=== PATIENT | female | born 1990 | race Two or more races ===

== ENCOUNTER 2020-07-17 17:27 | Emergency (ER) | payer BC ==
[~2020-07-17] VITALS: Ht 167.6 cm; Wt 95.3 kg
[2020-07-17 18:47] LABS: Basophils # (auto) 0 10 ^3/uL (0-0.2); Basophils % (auto) 0.4 % (0.0-2.0); Eosinophils # (auto) 0.1 10 ^3/uL (0-0.8); Eosinophils % (auto) 1.1 % (0.0-7.0); Hematocrit 39.9 % (36.0-46.0); Hemoglobin 13.8 g/dL (12.2-16.2); Lymphocytes # (auto) 2.2 10 ^3/uL (0.4-5.4); Lymphocytes % (auto) 21.4 % (10.0-50.0); Mean Corpuscular Hemoglobin 28.1 pg (28.0-32.0); Mean Corpuscular Hgb Conc. 34.7 g/dL (32.0-36.0); Mean Corpuscular Volume 81.2 fL (80.0-100.0); Monocytes # (auto) 0.7 10 ^3/uL (0-1.3); Neutrophils # (auto) 7.4 10 ^3/uL (1.6-8.6); Neutrophils % (auto) 70.1 % (37.0-80.0); Nucleated Red Blood Cells % 0.1 %; Platelet Count (auto) 221 10^3/uL (140-450); Red Blood Cells 4.92 10^6/uL (4.0-5.20); Red Cell Distribution Width 16.4 % (11.8-14.3); White Blood Cell 10.5 10^3/uL (4.4-10.8)
[2020-07-17 21:30] VITALS: BP 159/93
== END 2020-07-17 20:51 | disposition home or self-care (01) ==
LOC: ER 17:27
DX: O20.0 Threatened abortion (principal)
CPT/HCPCS: 36415; 76801; 76817; 84702; 85025

== ENCOUNTER → 2020-07-23 | Outpatient (CLI) | payer BC | END | disposition home or self-care (01) | LOC: EEVIPCON 12:24 → LAB 12:24 | PROVIDERS: ATTEND Obstetrics & Gynecology | DX: O20.0 Threatened abortion (principal) | CPT/HCPCS: 36415; 84702 ==

== ENCOUNTER → 2020-07-25 | Outpatient (CLI) | payer BC | END | disposition home or self-care (01) | LOC: LAB 08:46 | PROVIDERS: ATTEND Obstetrics & Gynecology | DX: Z34.80 Encounter for supervision of other normal pregnancy, unspecified trimester (principal); Z3A.00 Weeks of gestation of pregnancy not specified | CPT/HCPCS: 36415; 81025; 84702 ==

== ENCOUNTER → 2020-08-01 | Outpatient (CLI) | payer BC | END | disposition home or self-care (01) | LOC: LAB 12:54 | PROVIDERS: ATTEND Obstetrics & Gynecology | DX: Z34.80 Encounter for supervision of other normal pregnancy, unspecified trimester (principal); Z3A.00 Weeks of gestation of pregnancy not specified | CPT/HCPCS: 36415; 84702 ==

== ENCOUNTER → 2021-05-03 | Outpatient (CLI) | payer BC ==
[2021-05-03 08:16] LABS: Basophils # (auto) 0 10 ^3/uL (0-0.2); Basophils % (auto) 0.3 % (0.0-2.0); Eosinophils # (auto) 0.1 10 ^3/uL (0-0.8); Eosinophils % (auto) 1.2 % (0.0-7.0); Hematocrit 42.6 % (36.0-46.0); Hemoglobin 14.3 g/dL (12.2-16.2); Lymphocytes # (auto) 1.8 10 ^3/uL (0.4-5.4); Lymphocytes % (auto) 24.6 % (10.0-50.0); Mean Corpuscular Hemoglobin 28.6 pg (28.0-32.0); Mean Corpuscular Hgb Conc. 33.6 g/dL (32.0-36.0); Monocytes # (auto) 0.4 10 ^3/uL (0-1.3); Monocytes % (auto) 5.5 % (0.0-12.0); Neutrophils % (auto) 68.4 % (37.0-80.0); Red Blood Cells 5.01 10^6/uL (4.0-5.20); Red Cell Distribution Width 13.6 % (11.8-14.3); White Blood Cell 7.3 10^3/uL (4.4-10.8)
[2021-05-03 08:25] LABS: Calcium 9.3 mg/dL (8.5-10.1); Potassium 3.7 mmol/L (3.5-5.1)
[2021-05-03 08:31] LABS: BUN/Creatinine Ratio 17.3; Bilirubin, Total 0.5 mg/dL (0.2-1.0); Total Protein 7.9 g/dL (6.4-8.2)
== END | disposition home or self-care (01) ==
LOC: LAB 07:41
PROVIDERS: ATTEND Obstetrics & Gynecology
DX: R73.9 Hyperglycemia, unspecified (principal); I10 Essential (primary) hypertension; M25.50 Pain in unspecified joint
CPT/HCPCS: 36415; 80053; 80061; 83036; 84439; 84443; 85025; 86038; 86431

== ENCOUNTER 2024-03-25 07:17 | Observation (INO) | payer BC ==
[~2024-03-25] VITALS: Ht 167.6 cm; Wt 98.9 kg
--- NOTE | 2024-03-25 08:24 | DVH ---
CLINICAL HISTORY: vaginal bleeding/ chronic hypertension. COMPARISON: None TECHNIQUE: biophysical profile was performed. Transabdominal sonographic images of the fetus we re obtained. Transvaginal evaluation was performed to evaluate the cervix. FINDINGS: The fetus is in cephalic position. heart rate measures 135 BPM. Amniotic fluid index measures 12.4 cm. The placenta is anterior in position. No evidence of placenta previa or abruption. Cervix is closed and measures up to 5.2 cm in length. Structures in the cervix, likely nabothian cyst s BPP profile is an overall score of 8/8, with 2/2 points for breathing, with at least one episode of breathing over a 30 second duration during a 30 minute observation, 2/2 points for m ovements, with 3 or more discrete body or limb movements, 2/2 points for tone, with one or more episodes of extremity extension with return to flexion, or opening and closing of hand, and 2/ 2 points for amniotic fluid, with at least 1 pocket of amniotic fluid that measures 2 cm in 2 perpend icular planes. IMPRESSION: 1. BPP score of 8/8. 2. No evidence of placenta previa or abruption. Cervix is closed and measures up to 5.2 cm in length. Nabothian cysts in the cervix.
[2024-03-25 08:27] LABS: Basophils # (auto) 0 10 ^3/uL (0-0.2); Eosinophils # (auto) 0.1 10 ^3/uL (0-0.8); Mean Corpuscular Hgb Conc. 32.8 g/dL (32.0-36.0); Monocytes # (auto) 0.6 10 ^3/uL (0-1.3)
[2024-03-25 08:28] LABS: Basophils % (auto) 0.2 % (0.0-2.0); Hemoglobin 10.5 g/dL (12.2-16.2); Lymphocytes # (auto) 1.5 10 ^3/uL (0.4-5.4); Lymphocytes % (auto) 14.1 % (10.0-50.0); Mean Corpuscular Hemoglobin 25.9 pg (28.0-32.0); Mean Corpuscular Volume 78.9 fL (80.0-100.0); Monocytes % (auto) 5.5 % (0.0-12.0); Neutrophils # (auto) 8.6 10 ^3/uL (1.6-8.6); Neutrophils % (auto) 79.2 % (37.0-80.0); Nucleated Red Blood Cells % 0.1 %; Platelet Count (auto) 335 10^3/uL (140-450); Red Blood Cells 4.05 10^6/uL (4.0-5.20); Red Cell Distribution Width 15.8 % (11.8-14.3); White Blood Cell 10.9 10^3/uL (4.4-10.8)
[2024-03-25 08:43] LABS: Urine Bacteria FEW /hpf (None Seen); Urine Blood 2+ /uL (Negative); Urine Clarity Clear (Clear); Urine Color Light-Yellow (Yellow); Urine Protein, UAD Negative (Negative); Urine Specific Gravity 1.009 (1.001-1.035); Urine Squamous Epithelial Cell FEW /hpf (<5); Urine Urobilinogen Normal (Negative); Urine WBC 3 /HPF (0-5)
[2024-03-25 08:45] LABS: INR 0.94 (0.9-1.15); Partial Thromboplastin Time 24.8 SEC (24.5-34.5)
[2024-03-25 08:45] LABS: Protein, Urine 6.3 mg/dL (1-14)
[2024-03-25 08:47] LABS: Creatinine, Urine 71.98 mg/dL (30.0-125.0); Urine Protein/Creatinine Ratio 0.09
[2024-03-25] MEDS: LABETALOL HCL 200 MG TAB PO ONE (08:47)
[2024-03-25] MEDS: NIFEdipine 10 MG CAP PO ONE ×2 (08:48→09:20)
[2024-03-25 08:50] LABS: Alanine Aminotransferase 10 U/L (7-40); Albumin 4.1 g/dL (3.2-4.8); Anion Gap 8 (5-15); BUN/Creatinine Ratio 14.8 (10.0-20.0); Calcium 9.2 mg/dL (8.7-10.4); Carbon Dioxide 23 mmol/L (20-31); Chloride 106 mmol/L (98-107); Glucose 93 mg/dL (74-106); Potassium 3.8 mmol/L (3.5-5.1); Sodium 137 mmol/L (136-145)
[2024-03-25 08:51] LABS: Bilirubin, Total 0.4 mg/dL (0.2-1.0); Total Protein 6.3 g/dL (5.7-8.2)
[2024-03-25 08:52] LABS: Alkaline Phosphatase 117 U/L (46-116); Aspartate Aminotransferase 10 U/L (13-40); Blood Urea Nitrogen 8 mg/dL (9-23)
[2024-03-25] MEDS ORDERED: LABE200T33 PO (10:56)
[2024-03-25] MEDS ORDERED: ASPI-543 PO (10:56)
[2024-03-25] MEDS ORDERED: NIFE90TA75 PO (10:57)
--- NOTE | 2024-03-25 12:03 | DVHDS2 ---
Physician Discharge Progress N Final Diagnosis: IUP 33 wk, Threatened labor Vaginal bleeding third trim (spotting) Secondary Diagnosis: AMA, CHTN Operations or Procedures: Operations or Procedures NST/BPP JOE OB ultrasound limited Acute tocolysis Commentary: Commentary Cervix closed, cervical length > 5cm NO acute bleeding status reassuring. PIH labs normal Condition on Discharge: Stable Disposition: Home Discharge Instructions: Diet: Regular Activity: Light activity Activity comment: Pelvic rest x 2 wk Follow Up/Referral: [address] Ndiaye Medications: Procardia 20mg PO q4h Follow Up Care: Discharge Statement: "Patient was advised to return to the ER or call 911 if any headaches, dizziness, shortness of breath, chest pain, abdominal pain, bleeding, fevers, or worsening of medical condition. Patient was counseled about treatment plan, medications, possible side effects, patientverbalized understanding. All questions were answered to the best of my ability. This discharge took greater then 30 minutes in planning, reviewing doc umentation, counseling the patient, and discussing with other team members." Visit Coding OBGYN Date of Service: Mar 25, 2024 Billing Provider: ANASTASIYA NDIAYE DO HUMAN RESOURCES TEAM MEMBER Common Visit Codes: 60155-IUV/OBS SAME DATE (HIGH) HUMAN RESOURCES TEAM MEMBER Procedure Codes: 04148-34- NON-STRESS TEST ANASTASIYA NDIAYE DO Mar 25, 2024 12:03
[2024-03-25] MEDS ORDERED: NIFE10CA52 PO (12:16)
[2024-03-25] MEDS ORDERED: NIFEdipine 10 MG CAP PO ONE (12:20)
== END 2024-03-25 12:51 | disposition home or self-care (01) ==
LOC: LDRP 07:17
PROVIDERS: ADMIT Obstetrics & Gynecology; ATTEND Obstetrics & Gynecology
DX: O47.03 False labor before 37 completed weeks of gestation, third trimester (principal); O26.853 Spotting complicating pregnancy, third trimester; O16.3 Unspecified maternal hypertension, third trimester; O09.513 Supervision of elderly primigravida, third trimester; Z3A.33 33 weeks gestation of pregnancy
CPT/HCPCS: 36415; 59025; 76817; 76818; 80053; 81001; 82570; 84156; 85025; 85610; 85730; 86850; 86900; 86901; 94760; G0378

== ENCOUNTER 2024-03-27 11:14 | Observation (INO) | payer BC ==
[~2024-03-27 11:14] MED LIST: ASPI-543 PO; LABE200T33 PO; NIFE10CA52 PO
--- NOTE | 2024-03-27 12:00 | DVH ---
CLINICAL HISTORY: Chronic hypertension. COMPARISON: US BIOPHYSICAL PROFILE on DOS: 03/25/24 TECHNIQUE: biophysical profile was performed. Transabdominal sonographic images of the fetus we re obtained. FINDINGS: The fetus is in cephalic position. heart rate measures 153 BPM. Amniotic fluid index measures 13 cm. The placenta is anterior in position. Dense of placenta previa or abruption. BPP profile is an overall score of 8/8, with 2/2 points for breathing, with at least one episode of breathing over a 30 second duration during a 30 minute observation, 2/2 points for m ovements, with 3 or more discrete body or limb movements, 2/2 points for tone, with one or more episodes of extremity extension with return to flexion, or opening and closing of hand, and 2/ 2 points for amniotic fluid, with at least 1 pocket of amniotic fluid that measures 2 cm in 2 perpend icular planes. IMPRESSION: BPP score of 8/8.
[2024-03-27 12:07] LABS: Urine Bacteria FEW /hpf (None Seen); Urine Blood Negative /uL (Negative); Urine Clarity Clear (Clear); Urine Color Light-Yellow (Yellow); Urine Mucus FEW (None Seen); Urine Protein, UAD Negative (Negative); Urine Squamous Epithelial Cell FEW /hpf (<5); Urine Urobilinogen Normal (Negative); Urine WBC 2 /HPF (0-5); Urine pH 6.5 (5.0-9.0)
[2024-03-27 12:16] LABS: Protein, Urine 6.6 mg/dL (1-14)
[2024-03-27 12:19] LABS: Creatinine, Urine 78.12 mg/dL (30.0-125.0); Urine Protein/Creatinine Ratio 0.08
[2024-03-27 12:47] LABS: Protein, Urine 7.8 mg/dL (1-14)
--- NOTE | 2024-03-29 09:29 | DVHDS2 ---
Physician Discharge Progress N Final Diagnosis: CHTN Operations or Procedures: Operations or Procedures nst,sono Condition on Discharge: Good Disposition: Home Discharge Instructions: Diet: Cardiac 2g Na,low cholest Activity: No Restrictions, As Tolerated Medications: na Follow Up Care: Specialist: 3d Discharge Statement: "Patient was advised to return to the ER or call 911 if any headaches, dizziness, shortness of breath, chest pain, abdominal pain, bleeding, fevers, or worsening of medical condition. Patient was counseled about treatment plan, medications, possible side effects, patientverbalized understanding. All questions were answered to the best of my ability. This discharge took greater then 30 minutes in planning, reviewing documentation, counseling the patient, and discussing with other team members." Visit Coding OBGYN Date of Service: Mar 29, 2024 Billing Provider: CHRIS GUSTAFOSN DO VICE PRESIDENT SALES Common Visit Codes: 82868-OPU/OBS DISCH DAY >30MIN VICE PRESIDENT SALES Procedure Codes: 78808-61- NON-STRESS TEST CHRIS GUSTAFSON DO Mar 29, 2024 09:29
== END 2024-03-27 12:53 | disposition home or self-care (01) ==
LOC: LDRP 11:14
PROVIDERS: ADMIT Obstetrics & Gynecology; ATTEND Obstetrics & Gynecology
DX: O16.3 Unspecified maternal hypertension, third trimester (principal); O26.853 Spotting complicating pregnancy, third trimester; Z3A.33 33 weeks gestation of pregnancy; Z79.899 Other long term (current) drug therapy; Z98.890 Other specified postprocedural states
CPT/HCPCS: 59025; 76818; 81001; 81002; 82570; 84156; 94760; G0378

== ENCOUNTER 2024-03-30 14:08 | Observation (INO) | payer BC ==
[~2024-03-30] VITALS: Ht 167.6 cm; Wt 99.3 kg
--- NOTE | 2024-03-30 17:39 | DVH ---
BIOPHYSICAL PROFILE HISTORY: Chronic hypertension TECHNIQUE: Multiple transabdominal real-time grayscale sonographic images through the gravid uterus of the fetus with duplex Doppler color flow and M-mode spectral analysis FINDINGS: BIOPHYSICAL PROFILE: breathing score: 2 movement score: 2 tone score: 2 Quantitative JOE score: 2 (JOE: 13.3 Cm.) Total score: 8 The cervix is not well-visualized Single live fetus in cephalic presentation. heart rate 145 beats per minute. Grade 2 anterior placenta without previa or abruption Single nuchal cord is not visualized. IMPRESSION: Biophysical profile score: 8 Single nuchal Cord is visualized.
--- NOTE | 2024-03-30 18:08 | DVHDS2 ---
Physician Discharge Progress N Final Diagnosis: testing for CHTN Operations or Procedures: Operations or Procedures 33yo IUP@33.4wks, Denies UCs/LOF/VB/ALDANA/vision changes/RUQ pain. Endorses +FM. VSS NST reactive FKC/PTL/PreE precautions reviewed Dr. Echavarria consulted, agrees with POC. Other Interventions Other Interventions [address] [address] Ph: [phone] DIAGNOSTIC IMAGING Diagnostic Imaging Report : [id number] Signed PATIENT: ARIAN PANDA ACCT: [id number] UNIT: [id number] : 1990 LOC: [facility] ROOM / BED: TRIAGE2 / A AGE / SEX: 33 / F ADM STATUS: ADM IN SERVICE 34 ORDERING PHYSICIAN: ROMELIA RASCON CNM PROCEDURE(s): BPP - BIOPHYSICAL PROFILE REASON: Chronic hypertension ORDER NUMBER(s): [id number], ACCESSION NUMBER(s): [id number] BIOPHYSICAL PROFILE HISTORY: Chronic hypertension TECHNIQUE: Multiple transabdominal real-time grayscale sonographic images through the gravid uterus of the fetus with duplex Doppler color flow and M-mode spectral analysis FINDINGS: BIOPHYSICAL PROFILE: breathing score: 2 movement score: 2 tone score: 2 Quantitative JOE score: 2 (JOE: 13.3 Cm.) Total score: 8 The cervix is not well-visualized Single live fetus in cephalic presentation. heart rate 145 beats per minute. Grade 2 anterior placenta without previa or abruption Single nuchal cord is not visualized. IMPRESSION: Biophysical profile score: 8 Single nuchal Cord is visualized. ATED BY: TERESITA ALVARADO DO DICTATED DATE/TIME: 03/30/241736 SIGNED BY: TERESITA ALVARADO DO SIGNED DATE/TIME: 03/30/241736 CC: Condition on Discharge: Stable Disposition: Home Discharge Instructions: Diet: Regular Activity: Light activity Medications: see med list Follow Up Care: Specialist: f/u twice weekly Discharge Statement: "Patient was advised to return to the ER or call 911 if any headaches, dizziness, shortness of breath, chest pain, abdominal pain, bleeding, fevers, or worsening of medical condition. Patient was counseled about treatment plan, medications, possible side effects, patientverbalized understanding. All questions were answered to the best of my ability. This discharge took greater then 30 minutes in planning, reviewing documentation, counseling the patient, and discussing with other team members." Visit Coding OBGYN Date of Service: Mar 30, 2024 Billing Provider: ROMELIA RASCON CNM SCHEDULE ANNOUNCER Common Visit Codes: 11467-RPEQLCV OBS CARE (HIGH) SCHEDULE ANNOUNCER Procedure Codes: 54228-42- NON-STRESS TEST ROMELIA RASCON CNM Mar 30, 2024 18:08
== END 2024-03-30 17:55 | disposition home or self-care (01) ==
LOC: LDRP 16:32
PROVIDERS: ADMIT Obstetrics & Gynecology; ATTEND Obstetrics & Gynecology
DX: O13.3 Gestational [pregnancy-induced] hypertension without significant proteinuria, third trimester (principal); Z3A.33 33 weeks gestation of pregnancy; Z79.899 Other long term (current) drug therapy
CPT/HCPCS: 59025; 76818; 81002; 94760; G0378

== ENCOUNTER 2024-04-03 11:15 | Observation (INO) | payer BC ==
--- NOTE | 2024-04-03 12:03 | DVH ---
BIOPHYSICAL PROFILE HISTORY: TN Comparison Study: Biophysical profile 03/30/24 TECHNIQUE: Multiple real-time grayscale sonographic images through the gravid uterus of the fetus wi th duplex Doppler color flow and M-mode spectral analysis FINDINGS: BIOPHYSICAL PROFILE: breathing score: 2 movement score: 2 tone score: 2 Quantitative JOE score: 2 (JOE: 12.0 Cm.). MVP is 4.2 cm. Total score: 8 The cervix is not well visualized. Single live fetus in cephalic presentation. heart rate 134 beats per minute. Anterior placenta without previa or abruption. No nuchal cord is seen at this time. IMPRESSION: Biophysical profile score: 8
--- NOTE | 2024-04-03 22:36 | DVHDS2 ---
Discharge Summary Date of Admission Apr 03, 2024 at 11:15 Date of Discharge: Apr 03, 2024 Admitting Diagnosis Evaluation for chronic hypertension intrauterine Wounds: n/a Brief Hx & Hospital Course: Patient here for observation and reassurance heart tones and blood pressure check Consults/Reason for consult n/a Operations or Procedures None Condition at Discharge: Good Final Diagnosis/Problems List Chronic hypertension intrauterine Discharge Disposition: Home SNF Discharge Will this Physician continue t: No Discharge Instruct/Medications Diet: Regular Activity: No Restrictions, As Tolerated Activity comment: Pelvic rest kick counts labor precautions hypertension precautions PH precautions Follow Up/Referral: As scheduled by weekly NST blood pressure check urine protein checks Discharge Statement: "Patient was advised to return to the ER or call 911 if any headaches, dizziness, shortness of breath, chest pain, abdominal pain, bleeding, fevers, or worsening of medical condition. Patient was counseled about treatment plan, medications, possible side effects, patientverbalized understanding. All questions were answered to the best of my ability. This discharge took greater then 30 minutes in planning, reviewing documentation, counseling the patient, and discussing with other team members." ASSESSMENT ASSESSMENT Assessment Visit Coding OBGYN Date of Service: Apr 03, 2024 Billing Provider: INDIRA SETH DO SHOP COOPER Common Visit Codes: 44574-VYV/OBS SAME DATE (LOW), 19110-TYX/OBS SAME DATE (MOD), 87664-WZB/OBS SAME DATE (HIGH) SHOP COOPER Procedure Codes: 05275-17- NON-STRESS TEST INDIRA SETH DO Apr 03, 2024 22:36
== END 2024-04-03 12:57 | disposition home or self-care (01) ==
LOC: LDRP 11:15
PROVIDERS: ADMIT Obstetrics & Gynecology; ATTEND Obstetrics & Gynecology
DX: O16.3 Unspecified maternal hypertension, third trimester (principal); Z3A.34 34 weeks gestation of pregnancy; Z79.899 Other long term (current) drug therapy; Z98.890 Other specified postprocedural states
CPT/HCPCS: 59025; 76818; 81002; G0378

== ENCOUNTER 2024-04-06 09:25 | Observation (INO) | payer BC ==
[2024-04-06] MEDS ORDERED: PREN-96 OR (18:03)
--- NOTE | 2024-04-06 19:14 | DVH ---
Procedure: US BIOPHYSICAL PROFILE 04/06/2024 06:34 PM Indication: CHTN Comparison: US BIOPHYSICAL PROFILE on DOS: 04/03/24, US BIOPHYSICAL PROFILE on DOS: 03/30/24, US BIOPHY SICAL PROFILE on DOS: 03/27/24 Technique: Sonogram of gravid uterus utilizing grayscale and color techniques. FINDINGS: Single living intrauterine gestation. Presentation: Cephalic Placenta: Right lateral, no previa or abruption heart rate: 146 bpm JOE: 13.5 cm, DVP: 4.1 cm Maternal cervix: Not visualized Biophysical Profile: breathing score: 2 movement score: 2 tone: 2 Quantitative JOE score: 2 Total score: 8/8 IMPRESSION: 1. Single living as above. 2. Biophysical profile score: 8/8.
--- NOTE | 2024-04-06 20:02 | DVHDS2 ---
Physician Discharge Progress N Final Diagnosis: testing for CHTN Problems List: (1) Chronic hypertension during Operations or Procedures: Operations or Procedures 33yo IUP@34.4wks, +FM, denies UCs/LOF/VB/ALDANA/vision changes/RUQ pain VSS, normotensive NST reactive (CNM reviewed tracing) FKC/PTL/PreE precautions reviewed. Dr. Echavarria consulted, agrees with POC. Other Interventions Other Interventions [place] [address] Ph: [phone] DIAGNOSTIC IMAGING Diagnostic Imaging Report : [id number] Signed PATIENT: ARIAN PANDA ACCT: [id number] UNIT: [id number] : 1990 LOC: LD ROOM / BED: [facility] / A AGE / SEX: 33 / F ADM STATUS: ADM IN SERVICE 13 ORDERING PHYSICIAN: ROMELIA RASCON CNM PROCEDURE(s): BPP - BIOPHYSICAL PROFILE REASON: CHTN ORDER NUMBER(s): [id number], ACCESSION NUMBER(s): [id number] Procedure: US BIOPHYSICAL PROFILE 04/06/2024 06:34 PM Indication: CHTN Comparison: US BIOPHYSICAL PROFILE on DOS: 04/03/24, US BIOPHYSICAL PROFILE on DOS: 03/30/24, US BIOPHYSICAL PROFILE on DOS: 03/27/24 Technique: Sonogram of gravid uterus utilizing grayscale and color techniques. FINDINGS: Single living intrauterine gestation. Presentation: Cephalic Placenta: Right lateral, no previa or abruption heart rate: 146 bpm JOE: 13.5 cm, DVP: 4.1 cm Maternal cervix: Not visualized Biophysical Profile: breathing score: 2 movement score: 2 tone: 2 Quantitative JOE score: 2 Total score: 8/8 IMPRESSION: 1. Single living as above. 2. Biophysical profile score: 8/8. ATED BY: PATRICIA HUERTA MD DICTATED DATE/TIME: 04/06/241910 SIGNED BY: PATRICIA HUERTA MD SIGNED DATE/TIME: 04/06/241910 CC: Condition on Discharge: Stable Disposition: Home Discharge Instructions: Diet: Regular Activity: No Restrictions, As Tolerated Medications: SEE MED LIST Follow Up Care: Specialist: f/u twice weekly Discharge Statement: "Patient was advised to return to the ER or call 911 if any headaches, dizziness, shortness of breath, chest pain, abdominal pain, bleeding, fevers, or worsening of medical condition. Patient was counseled about treatment plan, medications, possible side effects, patientverbalized understanding. All questions were answered to the best of my ability. This discharge took greater then 30 minutes in planning, reviewing documentation, counseling the patient, and discussing with other team members." Visit Coding OBGYN Date of Service: Apr 06, 2024 Billing Provider: ROMELIA RASCON CNM HAND CANDLE MOLDER Common Visit Codes: 14964-YKSLOSJ OBS CARE (HIGH) HAND CANDLE MOLDER Procedure Codes: 84221-81- NON-STRESS TEST ROMELIA RASCON CNM Apr 06, 2024 20:02
[2024-04-11] MEDS ORDERED: LABE300T5 PO (19:11)
== END 2024-04-06 19:28 | disposition home or self-care (01) ==
LOC: LDRP 17:05
PROVIDERS: ADMIT Obstetrics & Gynecology; ATTEND Obstetrics & Gynecology
DX: O13.3 Gestational [pregnancy-induced] hypertension without significant proteinuria, third trimester (principal); Z3A.34 34 weeks gestation of pregnancy; Z79.899 Other long term (current) drug therapy
CPT/HCPCS: 76818; 81002; G0378; 59025; 76819

== ENCOUNTER 2024-04-10 10:14 | Observation (INO) | payer BC ==
[~2024-04-10] VITALS: Ht 167.6 cm; Wt 98.9 kg
[~2024-04-10 10:14] MED LIST changes: +PREN-96 OR
--- NOTE | 2024-04-10 11:03 | DVH ---
BIOPHYSICAL PROFILE HISTORY: chronic htn Comparison Study: None available at time of dictation. TECHNIQUE: Multiple real-time grayscale sonographic images through the gravid uterus of the fetus wit h duplex doppler color flow and M-mode spectral analysis FINDINGS: BIOPHYSICAL PROFILE: breathing score: 2 movement score: 2 tone score: 2 Quantitative JOE score: 2 (JOE: 12.1 cm.) Total score: 8/8 Single live fetus in cephalic presentation. heart rate 152 beats per minute. Anterior placenta without previa or abruption Biophysical profile score 8/8 corresponding to an NIKKI of 05/14/24 IMPRESSION: Biophysical profile score: 8/8
[2024-04-10] MEDS: hydrALAZINE HCL 20 MG/ML VL IV ONE (12:16)
[2024-04-10 12:18] LABS: Urine Bacteria FEW /hpf (None Seen); Urine Blood TRACE /uL (Negative); Urine Clarity Clear (Clear); Urine Color Yellow (Yellow); Urine Mucus FEW (None Seen); Urine Protein, UAD Negative (Negative); Urine Specific Gravity 1.016 (1.001-1.035); Urine Squamous Epithelial Cell FEW /hpf (<5); Urine Urobilinogen Normal (Negative); Urine WBC < 1 /HPF (0-5); Urine pH 6.5 (5.0-9.0)
[2024-04-10 12:22] LABS: Basophils # (auto) 0.1 10 ^3/uL (0-0.2); Basophils % (auto) 0.4 % (0.0-2.0); Eosinophils # (auto) 0.1 10 ^3/uL (0-0.8); Eosinophils % (auto) 0.9 % (0.0-7.0); Hemoglobin 10.7 g/dL (12.2-16.2); Lymphocytes # (auto) 1.7 10 ^3/uL (0.4-5.4); Lymphocytes % (auto) 14.6 % (10.0-50.0); Mean Corpuscular Hemoglobin 25.5 pg (28.0-32.0); Mean Corpuscular Hgb Conc. 32.3 g/dL (32.0-36.0); Mean Corpuscular Volume 78.9 fL (80.0-100.0); Monocytes # (auto) 0.8 10 ^3/uL (0-1.3); Monocytes % (auto) 6.7 % (0.0-12.0); Neutrophils # (auto) 9.2 10 ^3/uL (1.6-8.6); Neutrophils % (auto) 77.4 % (37.0-80.0); Platelet Count (auto) 350 10^3/uL (140-450); Red Blood Cells 4.19 10^6/uL (4.0-5.20); Red Cell Distribution Width 16.5 % (11.8-14.3)
[2024-04-10 12:31] LABS: Protein, Urine 13.6 mg/dL (1-14)
[2024-04-10 12:33] LABS: Creatinine, Urine 117.91 mg/dL (30.0-125.0); Urine Protein/Creatinine Ratio 0.12
[2024-04-10 12:48] LABS: INR 0.93 (0.9-1.15); Partial Thromboplastin Time 26.2 SEC (24.5-34.5); Prothrombin Time 9.9 sec (9.3-11.8)
--- NOTE | 2024-04-10 13:02 | DVH ---
OB ULTRASOUND COMPLETE: HISTORY: EFW for chronic htn TECHNIQUE: Multiple real-time grayscale images of the gravid uterus with duplex Doppler color flow an d M-mode spectral analysis. COMPARISON: Biophysical profile 04/10/2024 FINDINGS: IUP single live fetus at 35 weeks 0 days average ultrasound age (AUA) based on composite averages of the BPD, head circumference, abdominal circumference and femur length MEASUREMENTS: BPD: 8.5 cm GA: 34 w 2 d HC: 31.5 cm GA: 35 w 3 d AC: 31.2 cm GA: 35 w 1 d FL: 6.8 cm GA: 35 w 0 Estimated weight 2572 grams; 5 lbs 11 oz, 43.5 percentile. heart rate 135 beats per minute JOE 12.1 cm ANATOMIC SURVEY: Limited evaluation of anatomy on the provided images. Transversed Presentation with the head to the left Lateral right placenta without previa or abruption Cervix is suboptimally visualized. IMPRESSION: IUP single live fetus at 35 weeks 0 days AUA corresponding to an NIKKI of 05/15/2024.
[2024-04-10 13:13] LABS: Alanine Aminotransferase 14 U/L (7-40); Albumin 3.9 g/dL (3.2-4.8); Anion Gap 10 (5-15); BUN/Creatinine Ratio 12.7 (10.0-20.0); Carbon Dioxide 21 mmol/L (20-31); Chloride 104 mmol/L (98-107); Glucose 92 mg/dL (74-106); Total Protein 6.4 g/dL (5.7-8.2)
[2024-04-10 13:14] LABS: Bilirubin, Total 0.3 mg/dL (0.2-1.0)
[2024-04-10 13:24] LABS: Alkaline Phosphatase 131 U/L (46-116); Aspartate Aminotransferase 9 U/L (13-40); Blood Urea Nitrogen 7 mg/dL (9-23); Sodium 135 mmol/L (136-145)
[2024-04-10 13:28] LABS: Uric Acid 4.8 mg/dL (3.1-7.8)
[2024-04-11] MEDS ORDERED: LABE300T5 PO (19:11)
--- NOTE | 2024-04-12 14:06 | DVHDS2 ---
Physician Discharge Progress N Final Diagnosis: chtn,35wks Operations or Procedures: Operations or Procedures nst,sono 35wks Condition on Discharge: Fair Disposition: Home Discharge Instructions: Diet: Regular, Consistent carbohydrate Activity: No Restrictions, As Tolerated Medications: na Follow Up Care: Specialist: 1d Discharge Statement: "Patient was advised to return to the ER or call 911 if any headaches, dizziness, shortness of breath, chest pain, abdominal pain, bleeding, fevers, or worsening of medical condition. Patient was counseled about treatment plan, medications, possible side effects, patientverbalized understanding. All questions were answered to the best of my ability. This discharge took greater then 30 minutes in planning, reviewing documentation, counseling the patient, and discussing with other team members." Visit Coding OBGYN Date of Service: Apr 10, 2024 Billing Provider: CHRIS GUSTAFSON DO EDGE INKER UPPERS Common Visit Codes: 92993-[id number] INP/OBS CARE(HIGH) EDGE INKER UPPERS Procedure Codes: 13281-29- NON-STRESS TEST CHRIS GUSTAFSON DO Apr 12, 2024 14:06
== END 2024-04-10 13:13 | disposition home or self-care (01) ==
LOC: LDRP 10:14
PROVIDERS: ADMIT Obstetrics & Gynecology; ATTEND Obstetrics & Gynecology
DX: O13.3 Gestational [pregnancy-induced] hypertension without significant proteinuria, third trimester (principal); Z98.890 Other specified postprocedural states; Z79.899 Other long term (current) drug therapy; Z3A.35 35 weeks gestation of pregnancy
CPT/HCPCS: 36415; 59025; 76805; 76819; 80053; 81001; 81002; 82570; 84156; 84550; 85025; 85610; 85730; 94760; 96374; G0378; J0360; 76818

== ENCOUNTER 2024-04-11 08:00 | Observation (INO) | payer BC ==
[2024-04-11] MEDS ORDERED: LABE300T5 PO ×2 (19:11)
--- NOTE | 2024-04-11 20:17 | DVHDS2 ---
Physician Discharge Progress N Final Diagnosis: IUP 35 wk, CHTN, AMA Operations or Procedures: Operations or Procedures NST Condition on Discharge: Stable Disposition: Home Discharge Instructions: Diet: Regular Activity: No Restrictions, As Tolerated Follow Up/Referral: as scheduled Medications: No new meds Follow Up Care: Discharge Statement: "Patient was advised to return to the ER or call 911 if any headaches, dizziness, shortness of breath, chest pain, abdominal pain, bleeding, fevers, or worsening of medical condition. Patient was counseled about treatment plan, medications, possible side effects, patientverbalized understanding. All questions were answered to the best of my ability. This discharge took greater then 30 minutes in planning, reviewing documentation, counseling the patient, and discussing with other team members." Visit Coding OBGYN Date of Service: Apr 11, 2024 Billing Provider: ANASTASIYA NDIAYE DO FISH INSPECTOR Common Visit Codes: 82521-NIZ/OBS SAME DATE (HIGH) FISH INSPECTOR Procedure Codes: 04333-60- NON-STRESS TEST ANASTASIYA NDIAYE DO Apr 11, 2024 20:17
== END 2024-04-11 19:21 | disposition home or self-care (01) ==
LOC: LDRP 17:42
PROVIDERS: ADMIT Obstetrics & Gynecology; ATTEND Obstetrics & Gynecology
DX: O13.3 Gestational [pregnancy-induced] hypertension without significant proteinuria, third trimester (principal); O09.513 Supervision of elderly primigravida, third trimester; Z98.890 Other specified postprocedural states; Z79.899 Other long term (current) drug therapy; Z3A.35 35 weeks gestation of pregnancy
CPT/HCPCS: 59025; 81002; G0378

== ENCOUNTER 2024-04-13 07:28 | Observation (INO) | payer BC ==
[~2024-04-13 07:28] MED LIST changes: -LABE200T33 PO; +LABE300T5 PO
--- NOTE | 2024-04-13 14:46 | DVH ---
CLINICAL HISTORY: Chronic hypertension. COMPARISON: US BIOPHYSICAL PROFILE on DOS: 04/10/24, US BIOPHYSICAL PROFILE on DOS: 04/06/24, US BIOPHYS ICAL PROFILE on DOS: 04/03/24 TECHNIQUE: biophysical profile was performed. Transabdominal sonographic images of the fetus we re obtained. FINDINGS: The fetus is in cephalic position. heart rate measures 132 BPM. Amniotic fluid index measures 15.15 cm. The placenta is anterior in position. There is suspected nuchal cord, with the umb ilical cord wrapped around the neck. BPP profile is an overall score of 8/8, with 2/2 points for breathing, with at least one episode of breathing over a 30 second duration during a 30 minute observation, 2/2 points for m ovements, with 3 or more discrete body or limb movements, 2/2 points for tone, with one or more episodes of extremity extension with return to flexion, or opening and closing of hand, and 2/ 2 points for amniotic fluid, with at least 1 pocket of amniotic fluid that measures 2 cm in 2 perpend icular planes. IMPRESSION: 1. BPP score of 8/8. 2. Suspected nuchal cord.
--- NOTE | 2024-04-15 15:10 | DVHDS2 ---
Physician Discharge Progress N Final Diagnosis: CHTN 35wks ama,morbid obesity Operations or Procedures: Operations or Procedures [id number],sono Condition on Discharge: Good Disposition: Home Discharge Instructions: Diet: Cardiac 2g Na,low cholest Activity: No Restrictions, As Tolerated Follow Up/Referral: NST/BPP 2xwk Medications: na Follow Up Care: Specialist: 3d Discharge Statement: "Patient was advised to return to the ER or call 911 if any headaches, dizziness, shortness of breath, chest pain, abdominal pain, bleeding, fevers, or worsening of medical condition. Patient was counseled about treatment plan, medications, possible side effects, patientverbalized understanding. All questions were answered to the best of my ability. This discharge took greater then 30 minutes in planning, reviewing documentation, counseling the patient, and discussing with other team members." Visit Coding OBGYN Date of Service: Apr 14, 2024 Billing Provider: CHRIS GUSTAFSON DO SHOP TECHNICIAN Common Visit Codes: 20679-JNMTDUE INP/OBS CARE (HIGH) SHOP TECHNICIAN Procedure Codes: 18400-24- NON-STRESS TEST CHRIS GUSTAFSON DO Apr 15, 2024 15:10
== END 2024-04-13 15:15 | disposition home or self-care (01) ==
LOC: UNDOADMOB 13:52 → LDRP 13:52
PROVIDERS: ADMIT Obstetrics & Gynecology; ATTEND Obstetrics & Gynecology
DX: O13.3 Gestational [pregnancy-induced] hypertension without significant proteinuria, third trimester (principal); O09.513 Supervision of elderly primigravida, third trimester; O99.213 Obesity complicating pregnancy, third trimester; E66.01 Morbid (severe) obesity due to excess calories; Z3A.35 35 weeks gestation of pregnancy; Z79.899 Other long term (current) drug therapy
CPT/HCPCS: 76818; 81002; G0378; 59025

== ENCOUNTER 2024-04-17 12:10 | Observation (INO) | payer BC ==
[~2024-04-17 12:10] MED LIST changes: +LABE200T33 PO
--- NOTE | 2024-04-17 13:15 | DVH ---
Procedure: US BIOPHYSICAL PROFILE 04/17/2024 12:37 PM Indication: chronic hypertension Comparison: US BIOPHYSICAL PROFILE on DOS: 04/13/24, US BIOPHYSICAL PROFILE on DOS: 04/10/24, US BIOPHYSI HELGA PROFILE on DOS: 04/06/24 Technique: Sonogram of gravid uterus utilizing grayscale and color techniques. FINDINGS: Single living intrauterine gestation. Presentation: Cephalic Placenta: Anterior heart rate: 132 bpm JOE: 13 cm, DVP: 6.3 cm Maternal cervix: Not visualized Other: Nuchal cord Biophysical Profile: breathing score: 2 movement score: 2 tone: 2 Quantitative JOE score: 2 Total score: 8/8 IMPRESSION: 1. Single living as above. 2. Biophysical profile score: 8/8.
--- NOTE | 2024-04-18 10:18 | DVHDS2 ---
Discharge Summary Date of Admission Apr 17, 2024 at 12:10 Date of Discharge: Apr 17, 2024 Admitting Diagnosis , ch HTN , Wounds: none Labs/Diagnostic Data: no urine protein Brief Hx & Hospital Course: here for nst , bp check reassuring Consults/Reason for consult none Operations or Procedures none Condition at Discharge: Good Final Diagnosis/Problems List Ch HTN Discharge Disposition: Home SNF Discharge Will this Physician continue t: No Discharge Instruct/Medications Diet: Regular Activity: No Restrictions, As Tolerated Discharge Statement: "Patient was advised to return to the ER or call 911 if any headaches, dizz iness, shortness of breath, chest pain, abdominal pain, bleeding, fevers, or worsening of medical condition. Patient was counseled about treatment plan, medications, possible side effects, patientverbalized understanding. All questions were answered to the best of my ability. This discharge took greater then 30 minutes in planning, reviewing documentation, counseling the patient, and discussing with other team members." ASSESSMENT ASSESSMENT Assessment Visit Coding OBGYN Date of Service: Apr 17, 2024 Billing Provider: INDIRA SETH DO AGRISCIENCE INSTRUCTOR Common Visit Codes: 60376-OWPITYAOAR INP/OBS CARE(HIGH), 44611-IGP/OBS SAME DATE (LOW), 91083-LQN/OBS SAME DATE (MOD), 89738-MYI/OBS SAME DATE (HIGH) AGRISCIENCE INSTRUCTOR Procedure Codes: 29901-78- NON-STRESS TEST INDIRA SETH DO Apr 18, 2024 10:18
== END 2024-04-17 14:03 | disposition home or self-care (01) ==
LOC: LDRP 12:10 → UNDOADMOB 12:10
PROVIDERS: ADMIT Obstetrics & Gynecology; ATTEND Obstetrics & Gynecology
DX: O16.3 Unspecified maternal hypertension, third trimester (principal); Z98.890 Other specified postprocedural states; Z79.899 Other long term (current) drug therapy; Z3A.36 36 weeks gestation of pregnancy
CPT/HCPCS: 76818; 81002; 94760; G0378; 59025

== ENCOUNTER 2024-04-20 08:38 | Observation (INO) | payer BC ==
[~2024-04-20 08:38] MED LIST changes: -LABE200T33 PO
--- NOTE | 2024-04-20 15:05 | DVH ---
BIOPHYSICAL PROFILE HISTORY: CHTN TECHNIQUE: Multiple transabdominal real-time grayscale sonographic images through the gravid uterus of the fetus with duplex Doppler color flow and M-mode spectral analysis FINDINGS: BIOPHYSICAL PROFILE: breathing score: 2 movement score: 2 tone score: 2 Quantitative JOE score: 2 (JOE: 8.2 Cm.) Total score: 8 The cervix not well visualized. Single live fetus in vertex presentation. heart rate 149 beats per minute. Anterior placenta without previa or abruption IMPRESSION: Biophysical profile score: 8 Double nuchal cord is suspected.
--- NOTE | 2024-04-20 15:43 | DVHDS2 ---
Physician Discharge Progress N Final Diagnosis: AMA, IUP 36 wk, Chronic HTN Secondary Diagnosis: nuchal cord x 2 Operations or Procedures: Operations or Procedures NST/BPP/JOE all WNL Condition on Discharge: Stable Disposition: Home Discharge Instructions: Diet: Regular Activity: No Restrictions, As Tolerated Follow Up/Referral: As scheduled 2x/wk NST/BPP, Strict FKC Medications: No new meds Follow Up Care: Discharge Statement: "Patient was advised to return to the ER or call 911 if any headaches, dizziness, shortness of breath, chest pain, abdominal pain, bleeding, fevers, or worsening of medical condition. Patient was counseled about treatment plan, medications, possible side effects, patientverbalized understanding. All questions were answered to the best of my ability. This discharge took greater then 30 minutes in planning, reviewing doc umentation, counseling the patient, and discussing with other team members." Visit Coding OBGYN Date of Service: Apr 20, 2024 Billing Provider: ANASTASIYA NDIAYE DO LOADING DOCK HELPER Common Visit Codes: [id number]/[id number] SAME DATE (HIGH) LOADING DOCK HELPER Procedure Codes: 88654-43- NON-STRESS TEST ANASTASIYA NDIAYE DO Apr 20, 2024 15:43
== END 2024-04-20 15:50 | disposition home or self-care (01) ==
LOC: LDRP 13:50
PROVIDERS: ADMIT Obstetrics & Gynecology; ATTEND Obstetrics & Gynecology
DX: O13.3 Gestational [pregnancy-induced] hypertension without significant proteinuria, third trimester (principal); O69.81X0 Labor and delivery complicated by cord around neck, without compression, not applicable or unspecified; O09.523 Supervision of elderly multigravida, third trimester; Z3A.36 36 weeks gestation of pregnancy; Z79.899 Other long term (current) drug therapy
CPT/HCPCS: 76818; 81002; G0378; 59025; 76819

== ENCOUNTER 2024-04-24 12:08 | Observation (INO) | payer BC ==
--- NOTE | 2024-04-24 13:04 | DVH ---
EXAM: US BIOPHYSICAL PROFILE HISTORY: CHTN COMPARISON: US BIOPHYSICAL PROFILE on DOS: 04/20/24, US BIOPHYSICAL PROFILE on DOS: 04/17/24, US BIOPHYS ICAL PROFILE on DOS: 04/13/24 TECHNIQUE: Multiple transabdominal real-time grayscale sonographic images through the gravid uterus of the fetus with duplex Doppler color flow and M-mode spectral analysis Findings/Impression: Single live intrauterine in vertex presentation with heart rate of 130 bpm. Biophysical profile was performed with 2 points for respirations, 2 points for movement, 2 points for tone and 2 points for amniotic fluid index. Biophysical profile score of 8/8. Amniotic fluid is within normal limits with JOE 16.1 cm and MVP 6.6 cm. Nuchal cord, possibly double. Normal JOE (5-25 cm) Normal MVP (2-8 cm)
--- NOTE | 2024-04-24 15:32 | DVHDS2 ---
Physician Discharge Progress N Final Diagnosis: SEAN ARANA 37WKS Operations or Procedures: Operations or Procedures NST,SONO Condition on Discharge: Good Disposition: Home Discharge Instructions: Diet: Regular Activity: No Restrictions, As Tolerated Medications: NA Follow Up Care: Specialist: 3D Discharge Statement: "Patient was advised to return to the ER or call 911 if any headaches, dizziness, shortness of breath, chest pain, abdominal pain, bleeding, fevers, or worsening of medical condition. Patient was counseled about treatment plan, medications, possible side effects, patientverbalized understanding. All questions were answered to the best of my ability. This discharge took greater then 30 minutes in planning, reviewing documentation, counseling the patient, and discussing with other team members." Visit Coding OBGYN Date of Service: Apr 24, 2024 Billing Provider: CHRIS GUSTAFSON DO BOTTOM PAINTER Common Visit Codes: [id number]/[id number] DISCH DAY >30MIN CHRIS GUSTAFSON DO Apr 24, 2024 15:32
== END 2024-04-24 13:27 | disposition home or self-care (01) ==
LOC: LDRP 12:08
PROVIDERS: ADMIT Obstetrics & Gynecology; ATTEND Obstetrics & Gynecology
DX: O13.3 Gestational [pregnancy-induced] hypertension without significant proteinuria, third trimester (principal); O09.523 Supervision of elderly multigravida, third trimester; Z3A.37 37 weeks gestation of pregnancy; Z79.899 Other long term (current) drug therapy
CPT/HCPCS: 76819; 81002; 94760; G0378

== ENCOUNTER 2024-04-27 14:00 | Observation (INO) | payer BC ==
--- NOTE | 2024-04-27 16:03 | DVH ---
LIMITED OB ULTRASOUND > 14 WKS: HISTORY: Chronic hypertension. Macrosomia. TECHNIQUE: Multiple real-time grayscale images of the gravid uterus with duplex Doppler color flow an d M-mode spectral analysis. biophysical profile was also performed. COMPARISON: US BIOPHYSICAL PROFILE on DOS: 04/24/24, US BIOPHYSICAL PROFILE on DOS: 04/20/24, US BIOPHY SICAL PROFILE on DOS: 04/17/24 FINDINGS: IUP single live fetus at 37 weeks 4 days based on composite averages of the BPD, head circumference, abdominal circumference and femur length. Estimated weight 3302 grams. heart rate 149 beats per minute. JOE 15.8 cm Cervix measures 4.7 cm in length and appears closed. Cephalic presentation Grade 2 placenta without previa or abruption, in anterior position without evidence of previa or abru ption. Possible nuchal cord x2 again noted. BPP profile is an overall score of 8/8, with 2/2 points for breathing, with at least one episode of breathing over a 30 second duration during a 30 minute observation, 2/2 points for m ovements, with 3 or more discrete body or limb movements, 2/2 points for tone, with one or more episodes of extremity extension with return to flexion, or opening and closing of hand, and 2/ 2 points for amniotic fluid, with at least 1 pocket of amniotic fluid that measures 2 cm in 2 perpend icular planes. IMPRESSION: 1. IUP single live fetus at 37 weeks 4 days AUA corresponding to an NIKKI of 05/14/2024. 2. BPP score of 8/8. 3. Possible nuchal cord x2 again seen. 4. No evidence for placenta previa or abruption. 5. Cervix appears closed and measures up to 4.7 cm in length.
--- NOTE | 2024-04-27 16:30 | DVHDS2 ---
Physician Discharge Progress N Final Diagnosis: testing for CHTN Operations or Procedures: Operations or Procedures S: 34yo IUP@37.4wks, +FM, Denies LOF/VB/ALDANA/vision changes/RUQ pain. PNC at [facility] OB. O: VSS EFM: FHR 140, moderate variability, +accels, -decels TOCO: no UCs BPP 09/16 A: 34yo IUP@37.4wks NST reactive P: D/C home per Dr. Echavarria after reviewing EFM/BPP FKC/labor/preE precautions reviewed Pt scheduled for IOL on 04/30/24 Condition on Discharge: Stable Disposition: Home Discharge Instructions: Diet: Regular Activity: No Restrictions, As Tolerated Medications: see med list Follow Up Care: Specialist: Pt scheduled for IOL on 04/30/24 Discharge Statement: "Patient was advised to return to the ER or call 911 if any headaches, d izziness, shortness of breath, chest pain, abdominal pain, bleeding, fevers, or worsening of medical condition. Patient was counseled about treatment plan, medications, possible side effects, patientverbalized understanding. All questions were answered to the best of my ability. This discharge took greater then 30 minutes in planning, reviewing documentation, counseling the patient, and discussing with other team members." Visit Coding OBGYN Date of Service: Apr 27, 2024 Billing Provider: ROMELIA RASCON CNM GRAPPLE SKIDDER OPERATOR Common Visit Codes: [id number] OBS CARE (HIGH) GRAPPLE SKIDDER OPERATOR Procedure Codes: 76508-60- NON-STRESS TEST ROMELIA RASCON CNM Apr 27, 2024 16:30
== END 2024-04-27 16:18 | disposition home or self-care (01) ==
LOC: LDRP 14:00 → UNDOADMOB 14:00 → LDRP 14:18
PROVIDERS: ADMIT Obstetrics & Gynecology; ATTEND Obstetrics & Gynecology
DX: O13.3 Gestational [pregnancy-induced] hypertension without significant proteinuria, third trimester (principal); Z3A.37 37 weeks gestation of pregnancy; Z79.899 Other long term (current) drug therapy
CPT/HCPCS: 76805; 76819; 81002; 94760; G0378

== ENCOUNTER 2024-04-30 19:28 | Inpatient (IN) | payer BC ==
[~2024-04-30] VITALS: Ht 152.4 cm; Wt 102.1 kg
--- NOTE | 2024-04-30 20:01 | DVHHP2 ---
OB CC & HPI Date Date of Admission: Apr 30, 2024 Patient Identification: : 7 Para: 2 EDC: May 14, 2024 Chief Complaints: Reason for admission: induction of labor Indication for induction: medical complication (Chronic HTN on medications) History of Present Complaints 34y SAB3 Ectopic x 1, with early term IUP, 38+ wk by LMP dating, 39 wk by 1st trim US dating. Admitted for medically indicated induction of labor Patient has CHTN controlled on meds (Labetalol and Nifedipine). Asymptomatic, denies headache, visual changes or epigastric pain Advanced maternal age, followed by Dr. Vitor BATRES. NIPT/AFP tests normal. Normal anatomy US and echo. GBS negative. Past Medical History Cardiac: HTN Pulmonary: No pertinent Hx Central Nervous System: No pertinent Hx GI: No pertinent Hx Hemotology/Oncology: No pertinent Hx Hepatobiliary: No pertinent Hx Psychiatric: No pertinent Hx Musculoskeletal: No pertinent Hx Rheumotologic: No pertinent Hx Infectious Disease: No peritnent Hx ENT: No pertinent Hx Renal/: No pertinent Hx Endocrine: No pertinent Hx Dermatology: No pertinent Hx Past Surgical History: No pertinent Hx OB History OB History Care: Good Care Ultrasounds: Normal mid trimester US Obstetrical Complications: Gestational Hypertension Allergies: Coded Allergies: Pork (Porcine) Protein (Verified Allergy, Unknown, 03/25/24) Home Meds Active Scripts Nifedipine (PROCARDIA CAPSULE) 10 Mg Cp, 20 MG PO Q6HR, #20 CAP Prov:SENTHILANASTASIYA DO 03/25/24 Reported Medications Labetalol Hcl (Labetalol Hcl) 300 Mg Tab, 300 MG PO BID for 30 Days, MG 04/11/24 Vit W/ Ferrous Fumara ( One Daily) Daily Tab, 1 OR, TAB 04/06/24 Aspirin (Aspir-Low) 81 Mg Tab, 81 MG PO DAILY for 30 Days, MG 03/25/24 Current Medications Current Medications Medications (Trade) Dose Ordered Sig/Brenda Route PRN Reason Start Time Stop Time Status Last Admin Lactated Ringer's 1,000 ml @ 125 mls/hr Q8H IV 04/30/24 19:45 UNV Nalbuphine HCl (Nubain) 10 mg Q4HP PRN IV MODERATE PAIN (4-6 PAIN SCALE) 04/30/24 19:45 UNV Witch Deirdre (Tucks) 1 pad PRN PRN TOP PERINEAL AREA DISCOMFORT 04/30/24 19:45 UNV Sodium Lauryl Sulfate (Phisoderm) 240 ml PRN PRN TOP PERINEAL AREA DISCOMFORT 04/30/24 19:45 UNV Benzocaine (Dermoplast) 1 applic PRN PRN TOP PERINEAL AREA DISCOMFORT 04/30/24 19:45 UNV Misoprostol (Cytotec) 50 mcg Q4HPRN PRN PO CERVICAL RIPENING 04/30/24 19:45 UNV Lidocaine HCl (Xylocaine) 20 ml ONCE PRN IJ PERINEAL AREA DISCOMFORT 04/30/24 19:45 UNV Family & Social History Family/Social History Blood Type: B+ Rubella: immune RPR/VDRL: Negative GBS Status: Negative HBsAG: Negative Review of Systems Constitutional: No symptom reported Ears, Nose, & Throat: No symptom reported Eyes: No symptom reported Pulmonary/Respiratory: No symptom reported Cardiovascular: No symptom reported Gastrointestinal: No symptom reported Genitourinary: No symptom reported Musculoskeletal: No symptom reported Skin: No symptom reported Psychiatric: No symptom reported Endocrine: No symptom reported Hemotologic/Lymphatic: No symptom reported OB Admission Exam Physical Exam HEENT: NCAT Heart: Rhythm Normal Lungs: Clear Abdomen: Gravid Extremities: Normal Reflexes: Normal Pelvic Exam: RN exam 1/thick/-3 VTX Cervical Dilatation: 1cm Effacement: 0% Station: -3 Membranes: Intact Heart Rate: 130's Accelerations: Accelerations Present Decelerations: No Decelerations Short Term Variability: Present Half-Way Variability: Average (6-25) Contractions on Admission: 6-10 Minutes Apart Intensity: Mild OB Plan Plan Admitting Diagnosis: Term IUP 38+ wk, Induction of labor for Chronic HTN GBS neg Advanced maternal age Plan: Induction Induction Methd: Misoprostol protocol Other Plan: Informed consent obtained for induction of labor, vaginal delivery, possible c /section All questions answered see orders. Visit Coding OBGYN Date of Service: Apr 30, 2024 Billing Provider: ANASTASIYA NDIAYE DO EXHIBIT ELECTRICIAN Common Visit Codes: [id number] INP/OBS CARE (HIGH) ANASTASIYA NDIAYE DO Apr 30, 2024 20:01
[2024-04-30 20:35] LABS: Basophils # (auto) 0 10 ^3/uL (0-0.2); Basophils % (auto) 0.2 % (0.0-2.0); Eosinophils # (auto) 0.1 10 ^3/uL (0-0.8); Hemoglobin 11.2 g/dL (12.2-16.2); Monocytes # (auto) 0.7 10 ^3/uL (0-1.3); Neutrophils # (auto) 9.1 10 ^3/uL (1.6-8.6); Nucleated Red Blood Cells % 0.1 %
[2024-04-30 20:37] LABS: Eosinophils % (auto) 0.8 % (0.0-7.0); Hematocrit 34.4 % (36.0-46.0); Lymphocytes # (auto) 2.1 10 ^3/uL (0.4-5.4); Lymphocytes % (auto) 17.6 % (10.0-50.0); Mean Corpuscular Hemoglobin 26.2 pg (28.0-32.0); Mean Corpuscular Hgb Conc. 32.6 g/dL (32.0-36.0); Mean Corpuscular Volume 80.4 fL (80.0-100.0); Monocytes % (auto) 5.7 % (0.0-12.0); Neutrophils % (auto) 75.7 % (37.0-80.0); Platelet Count (auto) 323 10^3/uL (140-450); Red Blood Cells 4.27 10^6/uL (4.0-5.20); Red Cell Distribution Width 18.8 % (11.8-14.3)
[2024-04-30 20:43] LABS: Urine Bacteria FEW /hpf (None Seen); Urine Blood Negative /uL (Negative); Urine Clarity Clear (Clear); Urine Color Yellow (Yellow); Urine Mucus FEW (None Seen); Urine Protein, UAD 1+ (Negative); Urine Specific Gravity 1.026 (1.001-1.035); Urine Squamous Epithelial Cell FEW /hpf (<5); Urine Urobilinogen Normal (Negative); Urine WBC 6 /HPF (0-5)
[2024-04-30 20:48] LABS: Protein, Urine 35.8 mg/dL (1-14)
[2024-04-30 20:50] LABS: Amphetamine Screen, Urine Neg (NEGATIVE)
[2024-04-30 20:51] LABS: INR 0.9 (0.9-1.15); Partial Thromboplastin Time 24.9 SEC (24.5-34.5); Prothrombin Time 9.6 sec (9.3-11.8)
[2024-04-30 20:51] LABS: Barbiturate Scree,Urine Neg (NEGATIVE); Benzodiazephine Screen, Urine Neg (NEGATIVE); Cannabinoid Screen, Urine Neg (NEGATIVE); Cocaine Screen, Urine Neg (NEGATIVE); Creatinine, Urine 144.53 mg/dL (30.0-125.0); Opiate Scree,Urine Neg (NEGATIVE); Phencyclidine Screen, Urine Neg (NEGATIVE); Urine Protein/Creatinine Ratio 0.25
[2024-04-30 20:53] LABS: Alanine Aminotransferase 11 U/L (7-40); Anion Gap 13 (5-15); BUN/Creatinine Ratio 17.9 (10.0-20.0); Blood Urea Nitrogen 12 mg/dL (9-23); Calcium 9.8 mg/dL (8.7-10.4); Carbon Dioxide 20 mmol/L (20-31); Chloride 105 mmol/L (98-107); Potassium 3.7 mmol/L (3.5-5.1); Sodium 138 mmol/L (136-145); Total Protein 6.7 g/dL (5.7-8.2); Uric Acid 5.8 mg/dL (3.1-7.8)
[2024-04-30 20:54] LABS: Albumin 4.2 g/dL (3.2-4.8); Aspartate Aminotransferase 14 U/L (13-40); Bilirubin, Total 0.3 mg/dL (0.2-1.0)
[2024-04-30 20:55] LABS: Alkaline Phosphatase 147 U/L (46-116); Glucose 125 mg/dL (74-106)
[2024-04-30] MEDS: miSOPROStol 50 MCG per PRE-CUT 1/2 TAB PO PRN (21:00)
[2024-04-30] MEDS: LABETALOL HCL 20 MG/4 ML VL IV PRN (23:26)
--- NOTE | 2024-05-01 04:03 | DVHPN2 ---
OB Labor Progress Note Date and Time Seen Date Seen: May 01, 2024 Time Seen: 04:00 Subjective Patient reports: No new complaints, Feels better Subjective Comment Denies any symptoms of HTN Had some elevated SBP > 160, IV Labetalol given s/p Cytotec x 2 doses, mild contractions Objective Vital Signs Afeb Monitoring Method Monitoring Method: External Heart Rate Heart Rate Baseline: 120 Heart Rate Variability: Moderate Presence of FHR Accelerations: Yes Presence of FHR Decelerations: No Contractions Contractions Intensity: Mild Contractions Resting Tone: Relaxed Membranes Membranes: Intact Vaginal Exam Vag Exam Deferred: Yes Medications Medications - Pitocin: No Medication - Epidural: No Lab Results Lab Results Vital Signs Date Time Temp Pulse Resp B/P (MAP) Pulse Ox O2 Delivery O2 Flow Rate FiO2 05/01/24 08:47 160/78 05/01/24 04:40 71 Current Medications Medications (Trade) Dose Ordered Sig/Brenda Start Time Stop Time Status Last Admin Dose Admin Lactated Ringer's 1,000 ml @ 125 mls/hr Q8H 04/30/24 19:45 05/01/24 08:51 125 MLS/HR Nalbuphine HCl (Nubain) 10 mg Q4HP PRN 04/30/24 19:45 Witch Deirdre (Tucks) 1 pad PRN PRN 04/30/24 19:45 Sodium Lauryl Sulfate (Phisoderm) 240 ml PRN PRN 04/30/24 19:45 Benzocaine (Dermoplast) 1 applic PRN PRN 04/30/24 19:45 Misoprostol (Cytotec) 50 mcg Q4HPRN PRN 04/30/24 19:45 05/01/24 07:47 50 MCG Lidocaine HCl (Xylocaine) 20 ml ONCE PRN 04/30/24 19:45 Labetalol HCl (Normodyne Tablet) 200 mg Q12HR 05/01/24 10:00 Nifedipine (Procardia Xl (Time-Release)) 90 mg DAILY 05/01/24 10:00 05/01/24 08:47 90 MG Labetalol HCl (Labetalol HCl) 20 mg Q2HPRN PRN 04/30/24 21:45 05/01/24 01:56 20 MG Labetalol HCl (Normodyne Tablet) 300 mg ONCE ONCE 05/01/24 04:15 05/01/24 04:16 DC 05/01/24 04:40 300 MG Ondansetron HCl (Zofran) 4 mg Q4HPRN PRN 05/01/24 06:30 Laboratory Tests Test 04/30/24 20:04 04/30/24 19:58 Range/Units Urine Color Yellow Yellow Urine Clarity Clear Clear Urine pH 6.0 5.0-9.0 Urine Specific [place] 1.026 1.001-1.035 Urine Protein 1+ H Negative Urine Ketones Negative Negative Urine Blood Negative Negative /uL Urine Nitrite Negative Negative Urine Bilirubin Negative Negative Urine Urobilinogen Normal Negative mg/dL Urine Leukocyte Esterase 2+ Negative /uL Urine RBC 3 0 - 4 /hpf Urine Microscopic WBC 6 H 0-5 /HPF Urine Squamous Epithelial Cells Few <5 /hpf Urine Bacteria Few H None Seen /hpf Urine Mucus Few None Seen Urine Creatinine 144.53 H 30.0-125.0 mg/dL Urine Protein/Creatinine Ratio 0.25 Urine Glucose Normal Normal mg/dL Urine Total Protein 35.8 H 1-14 mg/dL Urine Opiates Screen Neg NEGATIVE Urine Fentanyl Screen Neg NEGATIVE Urine Barbiturates Screen Neg NEGATIVE Urine Phencyclidine Screen Neg NEGATIVE Urine Amphetamines Screen Neg NEGATIVE Urine Benzodiazepines Screen Neg NEGATIVE Urine Cocaine Screen Neg NEGATIVE Urine Cannabinoids Screen Neg NEGATIVE White Blood Count 12.0 H 4.4-10.8 10^3/uL Red Blood Count 4.27 4.0-5.20 10^6/uL Hemoglobin 11.2 L 12.2-16.2 g/dL Hematocrit 34.4 L 36.0-46.0 % Mean Corpuscular Volume 80.4 80.0-100.0 fL Mean Corpuscular Hemoglobin 26.2 L 28.0-32.0 pg Mean Corpuscular Hemoglobin Concent 32.6 32.0-36.0 g/dL Red Cell Distribution Width 18.8 H 11.8-14.3 % Platelet Count 323 140-450 10^3/uL Mean Platelet Volume 7.7 6.9-10.8 fL Neutrophils (%) (Auto) 75.7 37.0-80.0 % Lymphocytes (%) (Auto) 17.6 10.0-50.0 % Monocytes (%) (Auto) 5.7 0.0-12.0 % Eosinophils (%) (Auto) 0.8 0.0-7.0 % Basophils (%) (Auto) 0.2 0.0-2.0 % Neutrophils # (Auto) 9.1 H 1.6-8.6 10 ^3/uL Lymphocytes # (Auto) 2.1 0.4-5.4 10 ^3/uL Monocytes # (Auto) 0.7 0-1.3 10 ^3/uL Eosinophils # (Auto) 0.1 0-0.8 10 ^3/uL Basophils # (Auto) 0 0-0.2 10 ^3/uL Nucleated Red Blood Cells 0.1 % Prothrombin Time 9.6 9.3-11.8 sec Prothrombin Time INR 0.90 0.9-1.15 Activated Partial Thromboplast Time 24.9 24.5-34.5 SEC Sodium Level 138 136-145 mmol/L Potassium Level 3.7 3.5-5.1 mmol/L Chloride Level 105 98-107 mmol/L Carbon Dioxide Level 20 20-31 mmol/L Anion Gap 13 5-15 Blood Urea Nitrogen 12 9-23 mg/dL Creatinine 0.67 0.550-1.02 mg/dL Glomerular Filtration Rate Calc 116 >90 mL/min BUN/Creatinine Ratio 17.9 10.0-20.0 Serum Glucose 125 H 74-106 mg/dL Uric Acid 5.8 3.1-7.8 mg/dL Calcium Level 9.8 8.7-10.4 mg/dL Total Bilirubin 0.3 0.2-1.0 mg/dL Aspartate Amino Transferase (AST) 14 13-40 U/L Alanine Aminotransferase (ALT) 11 7-40 U/L Alkaline Phosphatase 147 H 46-116 U/L Total Protein 6.7 5.7-8.2 g/dL Albumin 4.2 3.2-4.8 g/dL Treponema pallidum Antibody Non-reactive Negative Assessment Assessment Induction of labor 38+ wk, Chronic HTN Plan Plan Continue current plan of induction; Cytotec, and then Pitocin when cervix is favorable, as needed Continue to observe BP's , treating severe HTN w/ IV Labetalol as needed PIH labs and urine prot/cr are all normal Plan discussed with: Patient, Other (RN) Visit Coding OBGYN Date of Service: May 01, 2024 Billing Provider: GARIBALDI,ANASTASIYA G DO DYE PENETRANT TESTING TECHNICIAN Common Visit Codes: [id number] INP/OBS CARE(HIGH) ANASTASIYA NDIAYE DO May 01, 2024 04:02
[2024-05-01] MEDS: LABETALOL HCL 200 MG TAB PO ONE (04:40)
[2024-05-01] MEDS ORDERED: ONDANSETRON HCL 4 MG/2 ML VIAL IV PRN (06:30)
[2024-05-01] MEDS: NIFEdipine ER 30 MG TAB PO SCH (08:47)
[2024-05-01] MEDS: LACTATED RINGER'S 1,000 ML IV SCH (08:51)
[2024-05-01] MEDS ORDERED: LABETALOL HCL 200 MG TAB PO SCH ×2 (10:00→16:40)
[2024-05-01] MEDS: DINOPROSTONE 10MG VAG SUPP PV ONE (16:29)
--- NOTE | 2024-05-01 16:35 | DVHPN2 ---
OB Labor Progress Note Date and Time Seen Date Seen: May 01, 2024 Time Seen: 16:32 Subjective Patient reports: No new complaints Objective Vital Signs See EHR, some elevated SBP > 160 Monitoring Method Monitoring Method: External Heart Rate Heart Rate Baseline: 130 Heart Rate Variability: Moderate Presence of FHR Accelerations: Yes Presence of FHR Decelerations: No Contractions Contractions Frequency: Occasional Contractions Intensity: Mild Membranes Membranes: Intact Vaginal Exam Vag Exam Deferred: No Vaginal Exam Dilation: 1 Vaginal Exam Effacement: 0 Vaginal Exam Station: -4 (Ballotable) Vaginal Exam Presentation: VTX Vaginal Exam Show: None Medications Medications - Pitocin: No Medication - Epidural: No Medication - Other s/p Cytotec x 4 doses orally, no cervical change Cervidil 10mg placed in posterior vaginal fornix at 1630p. Lab Results Lab Results Vital Signs Date Time Temp Pulse Resp B/P (MAP) Pulse Ox O2 Delivery O2 Flow Rate FiO2 05/01/24 08:47 160/78 05/01/24 04:40 71 Current Medications Medications (Trade) Dose Ordered Sig/Brenda Start Time Stop Time Status Last Admin Dose Admin Lactated Ringer's 1,000 ml @ 125 mls/hr Q8H 04/30/24 19:45 05/01/24 08:51 125 MLS/HR Nalbuphine HCl (Nubain) 10 mg Q4HP PRN 04/30/24 19:45 Witch Deirdre (Tucks) 1 pad PRN PRN 04/30/24 19:45 Sodium Lauryl Sulfate (Phisoderm) 240 ml PRN PRN 04/30/24 19:45 Benzocaine (Dermoplast) 1 applic PRN PRN 04/30/24 19:45 Misoprostol (Cytotec) 50 mcg Q4HPRN PRN 04/30/24 19:45 05/01/24 11:48 50 MCG Lidocaine HCl (Xylocaine) 20 ml ONCE PRN 04/30/24 19:45 Labetalol HCl (Normodyne Tablet) 200 mg Q12HR 05/01/24 10:00 05/01/24 09:47 DC Nifedipine (Procardia Xl (Time-Release)) 90 mg DAILY 05/01/24 10:00 05/01/24 08:47 90 MG Labetalol HCl (Labetalol HCl) 20 mg Q2HPRN PRN 04/30/24 21:45 05/01/24 01:56 20 MG Labetalol HCl (Normodyne Tablet) 300 mg ONCE ONCE 05/01/24 04:15 05/01/24 04:16 DC 05/01/24 04:40 300 MG Ondansetron HCl (Zofran) 4 mg Q4HPRN PRN 05/01/24 06:30 Labetalol HCl (Normodyne Tablet) 200 mg Q12H 05/01/24 16:40 05/01/24 15:49 DC Labetalol HCl (Normodyne Tablet) 300 mg Q12H 05/01/24 16:40 Dinoprostone (Cervidil Suppository) 1 supp ONCE ONCE 05/01/24 16:00 05/01/24 16:01 DC 05/01/24 16:29 1 SUPP Laboratory Tests Test 04/30/24 20:04 04/30/24 19:58 Range/Units Urine Color Yellow Yellow Urine Clarity Clear Clear Urine pH 6.0 5.0-9.0 Urine Specific [place] 1.026 1.001-1.035 Urine Protein 1+ H Negative Urine Ketones Negative Negative Urine Blood Negative Negative /uL Urine Nitrite Negative Negative Urine Bilirubin Negative Negative Urine Urobilinogen Normal Negative mg/dL Urine Leukocyte Esterase 2+ Negative /uL Urine RBC 3 0 - 4 /hpf Urine Microscopic WBC 6 H 0-5 /HPF Urine Squamous Epithelial Cells Few <5 /hpf Urine Bacteria Few H None Seen /hpf Urine Mucus Few None Seen Urine Creatinine 144.53 H 30.0-125.0 mg/dL Urine Protein/Creatinine Ratio 0.25 Urine Glucose Normal Normal mg/dL Urine Total Protein 35.8 H 1-14 mg/dL Urine Opiates Screen Neg NEGATIVE Urine Fentanyl Screen Neg NEGATIVE Urine Barbiturates Screen Neg NEGATIVE Urine Phencyclidine Screen Neg NEGATIVE Urine Amphetamines Screen Neg NEGATIVE Urine Benzodiazepines Screen Neg NEGATIVE Urine Cocaine Screen Neg NEGATIVE Urine Cannabinoids Screen Neg NEGATIVE White Blood Count 12.0 H 4.4-10.8 10^3/uL Red Blood Count 4.27 4.0-5.20 10^6/uL Hemoglobin 11.2 L 12.2-16.2 g/dL Hematocrit 34.4 L 36.0-46.0 % Mean Corpuscular Volume 80.4 80.0-100.0 fL Mean Corpuscular Hemoglobin 26.2 L 28.0-32.0 pg Mean Corpuscular Hemoglobin Concent 32.6 32.0-36.0 g/dL Red Cell Distribution Width 18.8 H 11.8-14.3 % Platelet Count 323 140-450 10^3/uL Mean Platelet Volume 7.7 6.9-10.8 fL Neutrophils (%) (Auto) 75.7 37.0-80.0 % Lymphocytes (%) (Auto) 17.6 10.0-50.0 % Monocytes (%) (Auto) 5.7 0.0-12.0 % Eosinophils (%) (Auto) 0.8 0.0-7.0 % Basophils (%) (Auto) 0.2 0.0-2.0 % Neutrophils # (Auto) 9.1 H 1.6-8.6 10 ^3/uL Lymphocytes # (Auto) 2.1 0.4-5.4 10 ^3/uL Monocytes # (Auto) 0.7 0-1.3 10 ^3/uL Eosinophils # (Auto) 0.1 0-0.8 10 ^3/uL Basophils # (Auto) 0 0-0.2 10 ^3/uL Nucleated Red Blood Cells 0.1 % Prothrombin Time 9.6 9.3-11.8 sec Prothrombin Time INR 0.90 0.9-1.15 Activated Partial Thromboplast Time 24.9 24.5-34.5 SEC Sodium Level 138 136-145 mmol/L Potassium Level 3.7 3.5-5.1 mmol/L Chloride Level 105 98-107 mmol/L Carbon Dioxide Level 20 20-31 mmol/L Anion Gap 13 5-15 Blood Urea Nitrogen 12 9-23 mg/dL Creatinine 0.67 0.550-1.02 mg/dL Glomerular Filtration Rate Calc 116 >90 mL/min BUN/Creatinine Ratio 17.9 10.0-20.0 Serum Glucose 125 H 74-106 mg/dL Uric Acid 5.8 3.1-7.8 mg/dL Calcium Level 9.8 8.7-10.4 mg/dL Total Bilirubin 0.3 0.2-1.0 mg/dL Aspartate Amino Transferase (AST) 14 13-40 U/L Alanine Aminotransferase (ALT) 11 7-40 U/L Alkaline Phosphatase 147 H 46-116 U/L Total Protein 6.7 5.7-8.2 g/dL Albumin 4.2 3.2-4.8 g/dL Treponema pallidum Antibody Non-reactive Negative Assessment Assessment IUP 38+ wk, CHTN, AMA Induction of labor Categ 1 FHR Plan Plan Cervidil inserted in posterior vagina To remain in place up to 12 hr for cervical ripening. BP control with oral HTN meds, IV labetalol as needed for persistent SBP > 160 Plan discussed with: Patient Visit Coding OBGYN Date of Service: May 01, 2024 Billing Provider: ANASTASIYA NDIAYE DO PRODUCT SAFETY COORDINATOR Common Visit Codes: [id number] INP/OBS CARE(HIGH) ANASTASIYA NDIAYE DO May 01, 2024 16:35
[2024-05-01] MEDS: LABETALOL HCL 200 MG TAB PO SCH (16:37)
[2024-05-02] VITALS (11 sets, daily range): BP systolic 101–109; BP diastolic 55–59; PULSE 65–74; RESP 15–18; TEMP 97.7–98.4; O2SAT 95–98
--- NOTE | 2024-05-02 01:39 | DVHPN2 ---
OB Labor Progress Note Date and Time Seen Date Seen: May 02, 2024 Time Seen: 01:20 Subjective Subjective Comment Patient reports bloody show Mild to moderate contractions, Cervidil removed at 0100 am, Started on Pitocin Objective Vital Signs Afebrile BP's stable Monitoring Method Monitoring Method: External Heart Rate Heart Rate Baseline: 140 Heart Rate Variability: Moderate Presence of FHR Accelerations: Yes Presence of FHR Decelerations: No Contractions Contractions Intensity: Moderate Membranes Membranes: Bulging Vaginal Exam Vag Exam Deferred: No Vaginal Exam Dilation: 3 Vaginal Exam Effacement: 60 Vaginal Exam Station: -3 Vaginal Exam Presentation: VTX Vaginal Exam Show: Moderate Medications Medications - Pitocin: Yes Medication - Epidural: No Lab Results Lab Results Vital Signs Date Time Temp Pulse Resp B/P (MAP) Pulse Ox O2 Delivery O2 Flow Rate FiO2 05/02/24 05:58 68 19 136/72 Current Medications Medications (Trade) Dose Ordered Sig/Brenda Start Time Stop Time Status Last Admin Dose Admin Lactated Ringer's 1,000 ml @ 125 mls/hr Q8H 04/30/24 19:45 05/01/24 08:51 125 MLS/HR Nalbuphine HCl (Nubain) 10 mg Q4HP PRN 04/30/24 19:45 05/02/24 04:41 10 MG Witch Deirdre (Tucks) 1 pad PRN PRN 04/30/24 19:45 05/02/24 03:57 1 PAD Sodium Lauryl Sulfate (Phisoderm) 240 ml PRN PRN 04/30/24 19:45 05/02/24 03:57 240 ML Benzocaine (Dermoplast) 1 applic PRN PRN 04/30/24 19:45 05/02/24 03:57 1 APPLIC Misoprostol (Cytotec) 50 mcg Q4HPRN PRN 04/30/24 19:45 05/01/24 11:48 50 MCG Lidocaine HCl (Xylocaine) 20 ml ONCE PRN 04/30/24 19:45 Labetalol HCl (Normodyne Tablet) 200 mg Q12HR 05/01/24 10:00 05/01/24 09:47 DC Nifedipine (Procardia Xl (Time-Release)) 90 mg DAILY 05/01/24 10:00 05/01/24 08:47 90 MG Labetalol HCl (Labetalol HCl) 20 mg Q2HPRN PRN 04/30/24 21:45 05/01/24 20:02 20 MG Labetalol HCl (Normodyne Tablet) 300 mg ONCE ONCE 05/01/24 04:15 05/01/24 04:16 DC 05/01/24 04:40 300 MG Ondansetron HCl (Zofran) 4 mg Q4HPRN PRN 05/01/24 06:30 Labetalol HCl (Normodyne Tablet) 200 mg Q12H 05/01/24 16:40 05/01/24 15:49 DC Labetalol HCl (Normodyne Tablet) 300 mg Q12H 05/01/24 16:40 05/02/24 04:17 300 MG Dinoprostone (Cervidil Suppository) 1 supp ONCE ONCE 05/01/24 16:00 05/01/24 16:01 DC 05/01/24 16:29 1 SUPP Oxytocin 1,000 ml @ 6 ml/hr Q24H 05/02/24 03:00 05/02/24 04:44 6 ML/HR Terbutaline Sulfate (Brethine Inj) 0.25 mg ONCE PRN 05/02/24 03:00 Laboratory Tests Test 04/30/24 20:04 04/30/24 19:58 Range/Units Urine Color Yellow Yellow Urine Clarity Clear Clear Urine pH 6.0 5.0-9.0 Urine Specific [place] 1.026 1.001-1.035 Urine Protein 1+ H Negative Urine Ketones Negative Negative Urine Blood Negative Negative /uL Urine Nitrite Negative Negative Urine Bilirubin Negative Negative Urine Urobilinogen Normal Negative mg/dL Urine Leukocyte Esterase 2+ Negative /uL Urine RBC 3 0 - 4 /hpf Urine Microscopic WBC 6 H 0-5 /HPF Urine Squamous Epithelial Cells Few <5 /hpf Urine Bacteria Few H None Seen /hpf Urine Mucus Few None Seen Urine Creatinine 144.53 H 30.0-125.0 mg/dL Urine Protein/Creatinine Ratio 0.25 Urine Glucose Normal Normal mg/dL Urine Total Protein 35.8 H 1-14 mg/dL Urine Opiates Screen Neg NEGATIVE Urine Fentanyl Screen Neg NEGATIVE Urine Barbiturates Screen Neg NEGATIVE Urine Phencyclidine Screen Neg NEGATIVE Urine Amphetamines Screen Neg NEGATIVE Urine Benzodiazepines Screen Neg NEGATIVE Urine Cocaine Screen Neg NEGATIVE Urine Cannabinoids Screen Neg NEGATIVE White Blood Count 12.0 H 4.4-10.8 10^3/uL Red Blood Count 4.27 4.0-5.20 10^6/uL Hemoglobin 11.2 L 12.2-16.2 g/dL Hematocrit 34.4 L 36.0-46.0 % Mean Corpuscular Volume 80.4 80.0-100.0 fL Mean Corpuscular Hemoglobin 26.2 L 28.0-32.0 pg Mean Corpuscular Hemoglobin Concent 32.6 32.0-36.0 g/dL Red Cell Distribution Width 18.8 H 11.8-14.3 % Platelet Count 323 140-450 10^3/uL Mean Platelet Volume 7.7 6.9-10.8 fL Neutrophils (%) (Auto) 75.7 37.0-80.0 % Lymphocytes (%) (Auto) 17.6 10.0-50.0 % Monocytes (%) (Auto) 5.7 0.0-12.0 % Eosinophils (%) (Auto) 0.8 0.0-7.0 % Basophils (%) (Auto) 0.2 0.0-2.0 % Neutrophils # (Auto) 9.1 H 1.6-8.6 10 ^3/uL Lymphocytes # (Auto) 2.1 0.4-5.4 10 ^3/uL Monocytes # (Auto) 0.7 0-1.3 10 ^3/uL Eosinophils # (Auto) 0.1 0-0.8 10 ^3/uL Basophils # (Auto) 0 0-0.2 10 ^3/uL Nucleated Red Blood Cells 0.1 % Prothrombin Time 9.6 9.3-11.8 sec Prothrombin Time INR 0.90 0.9-1.15 Activated Partial Thromboplast Time 24.9 24.5-34.5 SEC Sodium Level 138 136-145 mmol/L Potassium Level 3.7 3.5-5.1 mmol/L Chloride Level 105 98-107 mmol/L Carbon Dioxide Level 20 20-31 mmol/L Anion Gap 13 5-15 Blood Urea Nitrogen 12 9-23 mg/dL Creatinine 0.67 0.550-1.02 mg/dL Glomerular Filtration Rate Calc 116 >90 mL/min BUN/Creatinine Ratio 17.9 10.0-20.0 Serum Glucose 125 H 74-106 mg/dL Uric Acid 5.8 3.1-7.8 mg/dL Calcium Level 9.8 8.7-10.4 mg/dL Total Bilirubin 0.3 0.2-1.0 mg/dL Aspartate Amino Transferase (AST) 14 13-40 U/L Alanine Aminotransferase (ALT) 11 7-40 U/L Alkaline Phosphatase 147 H 46-116 U/L Total Protein 6.7 5.7-8.2 g/dL Albumin 4.2 3.2-4.8 g/dL Treponema pallidum Antibody Non-reactive Negative Assessment Assessment Term IUP , AMA, CHTN Induction of labor Categ 1 tracing GBS neg Plan Plan Cervidil removed, IV pitocin started Recommend Labor Epidural, patient declined at this time Care endorsed to director of parks and recreation physician, Dr Echavarria Plan discussed with: Patient Visit Coding OBGYN Date of Service: May 02, 2024 Billing Provider: ANASTASIYA NDIAYE DO PAYROLL EXAMINER Common Visit Codes: [id number] INP/OBS CARE(HIGH) ANASTASIYA NDIAYE DO May 02, 2024 01:39
[2024-05-02] MEDS ORDERED: TERBUTALINE SULFATE 1 MG/ML 1ML VIAL SC PRN (03:00)
[2024-05-02] MEDS: DERMOPLAST 60ML BOTTLE TOP PRN (03:57)
[2024-05-02] MEDS: PHISODERM TOP SOLN 240ML BTL TOP PRN (03:57)
[2024-05-02] MEDS: WITCH HAZEL-GLYCERIN PAD TOP PRN (03:57)
[2024-05-02] MEDS: NALBUPHINE HCL 10 MG/1ml INJECTION IV PRN (04:41)
[2024-05-02] MEDS: LACT. RINGERS/OXYTOCIN 20UNITS 1,000 ML IV SCH (04:44)
[2024-05-02] MEDS: MAGNESIUM SULFATE 100 ML IV ONE (09:27)
[2024-05-02] MEDS: MAGNESIUM SULFATE 40MG/ML 1,000 ML IV SCH (09:52)
[2024-05-02] MEDS: LORazepam 2MG/ML-1ML VIAL IV ONE (10:00)
[2024-05-02] MEDS ORDERED: ONDANSETRON ODT 4 MG TAB PO PRN (11:15)
[2024-05-02] MEDS: LIDOCAINE 2%HCL (LOCAL ANESTH.) INJ 20ML MDV IJ PRN (11:15)
[2024-05-02] MEDS ORDERED: ACETAMINOPHEN 325 MG TAB PO PRN (11:15)
[2024-05-02] MEDS: IBUPROFEN 600 MG TAB PO PRN (11:36)
[2024-05-02] MEDS ORDERED: TRANEXAMIC ACID 1,000 mg/10ml INJ VIAL IV ONE (16:00)
[2024-05-02] MEDS: LACT. RINGERS/OXYTOCIN 20UNITS 500 ML IV ONE ×2 (16:48)
--- NOTE | 2024-05-02 22:37 | LDN2 ---
Labor and Delivery Note Date 05/02/24 Age 34 7 Para 3 EDC 38 2/ EGA 38 2 Diagnosis induction super imposed PIH Vacuum Assisted: No Placenta: Spontaneous Sex: Female Weight 7 lbs 4 0z Nuchal Cord Transected: No Amniotic Fluid: Clear Anesthesia none Episiotomy: No Extension: Yes (1 degree ) Repaired with 1st degree anterior chromic repair EBL 300cc Labs Blood Bank 04/30/24 19:58: Blood Type B POSITIVE Complications PIH Conditions stable guarded INDIRA SETH DO May 02, 2024 22:37
[2024-05-03 03:00] VITALS: BP 103/51; PULSE 76; RESP 16; TEMP 98.5; O2SAT 95
--- NOTE | 2024-05-03 05:47 | DVHPN2 ---
Chief Complaints Patient reports: No new complaints Nursing reports: No new complaints, No abdominal pain, No chest pain, No dizziness, No cough Objective Vitals Vital Signs Date Time Temp Pulse Resp B/P (MAP) Pulse Ox O2 Delivery O2 Flow Rate FiO2 05/03/24 04:40 70 103/53 05/03/24 03:00 98.5 16 95 98.5 05/02/24 21:00 Room Air Medications Current Medications Medications (Trade) Dose Ordered Sig/Brenda Route PRN Reason Start Time Stop Time Status Last Admin Acetaminophen (Tylenol Tablet) 650 mg Q4HP PRN PO MILD PAIN (1-3 PAIN SCALE) 05/02/24 11:15 Ibuprofen (Motrin Tablet) 600 mg Q6HP PRN PO MODERATE PAIN (4-6 PAIN SCALE) 05/02/24 11:15 05/02/24 11:36 Magnesium Sulfate 1,000 ml @ 50 mls/hr Q20H IV 05/02/24 09:00 05/02/24 09:52 Ondansetron HCl (Zofran Po) 4 mg Q4HPRN PRN PO NAUSEA / VOMITING 05/02/24 11:15 General: Normal ENT: Normal Lungs: Normal Cardiovascular: Normal Abdominal: Soft (Uterus firm 12 week size) Musculoskeletal: Normal Extremities: Normal Skin: Normal (I am not here) Neurological: Normal Studies Laboratory Tests 04/30/24 19:58 Test 04/30/24 19:58 Range/Units Serum Glucose 125 H 74-106 mg/dL Ass/Plan Assessment Postop day 1 PIH superimposed , blood pressure well controlled magnesium stopped a 12 hours Zuniga removed. Plan See INDIRA SETH DO May 03, 2024 05:47
--- NOTE | 2024-05-03 05:51 | DVHDS2 ---
Discharge Summary Date of Admission Apr 30, 2024 at 19:28 Date of Discharge: May 03, 2024 Admitting Diagnosis SUPERIMPOSED PH INDUCTION Labs/Diagnostic Data: Laboratory Results Test 05/02/24 19:19 04/30/24 20:04 04/30/24 19:58 Magnesium Lvl (Mg Sulfate Therapy) 4.21 mg/dL (4.0-7.1) Urine Color Yellow (Yellow) Urine Clarity Clear (Clear) Urine pH 6.0 (5.0-9.0) Urine Specific [place] 1.026 (1.001-1.035) Urine Protein 1+ (Negative) Urine Ketones Negative (Negative) Urine Blood Negative /uL (Negative) Urine Nitrite Negative (Negative) Urine Bilirubin Negative (Negative) Urine Urobilinogen Normal mg/dL (Negative) Urine Leukocyte Esterase 2+ /uL (Negative) Urine RBC 3 /hpf (0 - 4) Urine Microscopic WBC 6 /HPF (0-5) Urine Squamous Epithelial Cells Few /hpf (<5) Urine Bacteria Few /hpf (None Seen) Urine Mucus Few (None Seen) Urine Creatinine 144.53 mg/dL (30.0-125.0) Urine Protein/Creatinine Ratio 0.25 Urine Glucose Normal mg/dL (Normal) Urine Total Protein 35.8 mg/dL (1-14) Urine Opiates Screen Neg (NEGATIVE) Urine Fentanyl Screen Neg (NEGATIVE) Urine Barbiturates Screen Neg (NEGATIVE) Urine Phencyclidine Screen Neg (NEGATIVE) Urine Amphetamines Screen Neg (NEGATIVE) Urine Benzodiazepines Screen Neg (NEGATIVE) Urine Cocaine Screen Neg (NEGATIVE) Urine Cannabinoids Screen Neg (NEGATIVE) White Blood Count 12.0 10^3/uL (4.4-10.8) Red Blood Count 4.27 10^6/uL (4.0-5.20) Hemoglobin 11.2 g/dL (12.2-16.2) Hematocrit 34.4 % (36.0-46.0) Mean Corpuscular Volume 80.4 fL (80.0-100.0) Mean Corpuscular Hemoglobin 26.2 pg (28.0-32.0) Mean Corpuscular Hemoglobin Concent 32.6 g/dL (32.0-36.0) Red Cell Distribution Width 18.8 % (11.8-14.3) Platelet Count 323 10^3/uL (140-450) Mean Platelet Volume 7.7 fL (6.9-10.8) Neutrophils (%) (Auto) 75.7 % (37.0-80.0) Lymphocytes (%) (Auto) 17.6 % (10.0-50.0) Monocytes (%) (Auto) 5.7 % (0.0-12.0) Eosinophils (%) (Auto) 0.8 % (0.0-7.0) Basophils (%) (Auto) 0.2 % (0.0-2.0) Neutrophils # (Auto) 9.1 10 ^3/uL (1.6-8.6) Lymphocytes # (Auto) 2.1 10 ^3/uL (0.4-5.4) Monocytes # (Auto) 0.7 10 ^3/uL (0-1.3) Eosinophils # (Auto) 0.1 10 ^3/uL (0-0.8) Basophils # (Auto) 0 10 ^3/uL (0-0.2) Nucleated Red Blood Cells 0.1 % Prothrombin Time 9.6 sec (9.3-11.8) Prothrombin Time INR 0.90 (0.9-1.15) Activated Partial Thromboplast Time 24.9 SEC (24.5-34.5) Sodium Level 138 mmol/L (136-145) Potassium Level 3.7 mmol/L (3.5-5.1) Chloride Level 105 mmol/L (98-107) Carbon Dioxide Level 20 mmol/L (20-31) Anion Gap 13 (5-15) Blood Urea Nitrogen 12 mg/dL (9-23) Creatinine 0.67 mg/dL (0.550-1.02) Glomerular Filtration Rate Calc 116 mL/min (>90) BUN/Creatinine Ratio 17.9 (10.0-20.0) Serum Glucose 125 mg/dL (74-106) Uric Acid 5.8 mg/dL (3.1-7.8) Calcium Level 9.8 mg/dL (8.7-10.4) Total Bilirubin 0.3 mg/dL (0.2-1.0) Aspartate Amino Transferase (AST) 14 U/L (13-40) Alanine Aminotransferase (ALT) 11 U/L (7-40) Alkaline Phosphatase 147 U/L (46-116) Total Protein 6.7 g/dL (5.7-8.2) Albumin 4.2 g/dL (3.2-4.8) Treponema pallidum Antibody Non-reactive (Negative) Other Laboratory Tests 04/30/24 19:58 Brief Hx & Hospital Course: PATIENT WAS INDUCED PROGRESSED NICELY DELIVERED WITH FIRST-DEGREE LACERATION REPAIR BLOOD PRESSURE SUBSEQUENTLY WELL CONTROLLED Consults/Reason for consult NONE Operations or Procedures NONE Condition at Discharge: Good Final Diagnosis/Problems List SUPERIMPOSED PH STATUS POST FIRST-DEGREE VAGINAL LACERATION Discharge Disposition: Home Discharge Instruct/Medications Diet: Regular Activity: Light activity (PELVIC REST 8 WEEKS FOLLOW UP BLOOD PRESSURE CHECK IN 1 WEEK PRIMARY OB) Follow Up/Referral: BP CHECK 1 WEEK PRIMARY OB Medications: RESUME HOME Discharge Statement: "Patient was advised to return to the ER or call 911 if any headaches, dizziness, shortness of breath, chest pain, abdominal pain, bleeding, fevers, or worsening of medical condition. Patient was counseled about treatment plan, medications, possible side effects, patientverbalized understanding. All questions were answered to the best of my ability. This discharge took greater then 30 minutes in planning, reviewing documentation, counseling the patient, and discussing with other team members." ASSESSMENT ASSESSMENT Hospital Course DAY 1 STABLE IMPROVED PH SUPERIMPOSED Assessment BP WELL CONTROLLED SEE DISCHARGE SUMMARY SEE DISCHARGE ORDERS Visit Coding OBGYN Date of Service: May 03, 2024 Billing Provider: INDIRA SETH DO TEXTURING MACHINE FIXER Common Visit Codes: [id number] OBS CARE (HIGH) TEXTURING MACHINE FIXER Procedure Codes: [id number] DEL INCLUDING INDIRA SETH DO May 03, 2024 05:51
[2024-05-03 07:20] VITALS: BP 146/63; PULSE 85; RESP 15; TEMP 98.7; O2SAT 97
[2024-05-03 10:44] LABS: Basophils # (auto) 0 10 ^3/uL (0-0.2); Basophils % (auto) 0.2 % (0.0-2.0); Eosinophils # (auto) 0.1 10 ^3/uL (0-0.8); Hemoglobin 7.3 g/dL (12.2-16.2); White Blood Cell 13.8 10^3/uL (4.4-10.8)
[2024-05-03 10:46] LABS: Eosinophils % (auto) 0.7 % (0.0-7.0); Hematocrit 22.5 % (36.0-46.0); Lymphocytes % (auto) 14.3 % (10.0-50.0); Mean Corpuscular Hgb Conc. 32.2 g/dL (32.0-36.0); Mean Corpuscular Volume 80.7 fL (80.0-100.0); Monocytes # (auto) 0.6 10 ^3/uL (0-1.3); Monocytes % (auto) 4.1 % (0.0-12.0); Neutrophils # (auto) 11.1 10 ^3/uL (1.6-8.6); Neutrophils % (auto) 80.7 % (37.0-80.0); Platelet Count (auto) 258 10^3/uL (140-450); Red Blood Cells 2.79 10^6/uL (4.0-5.20); Red Cell Distribution Width 18.8 % (11.8-14.3)
[2024-05-03 11:30] VITALS: BP 154/81; PULSE 81; RESP 17; TEMP 98.1; O2SAT 97
== END 2024-05-03 15:20 | disposition home or self-care (01) | DRG 807 ==
LOC: LDRP 19:28
PROVIDERS: ADMIT Obstetrics & Gynecology; ATTEND Obstetrics & Gynecology
PROC: 10E0XZZ Delivery of Products of Conception, External Approach (ICD-10-PCS; principal; 2024-05-02)
PROC: 0HQ9XZZ Repair Perineum Skin, External Approach (ICD-10-PCS; 2024-05-02)
PROC: 3E0DXGC Introduction of Other Therapeutic Substance into Mouth and Pharynx, External Approach (ICD-10-PCS; 2024-05-02)
PROC: 3E033VJ Introduction of Other Hormone into Peripheral Vein, Percutaneous Approach (ICD-10-PCS; 2024-05-02)
PROC: 3E0P7VZ Introduction of Hormone into Female Reproductive, Via Natural or Artificial Opening (ICD-10-PCS; 2024-05-02)
DX: O10.92 Unspecified pre-existing hypertension complicating childbirth (principal); Z37.0 Single live birth; Z3A.38 38 weeks gestation of pregnancy; Z79.899 Other long term (current) drug therapy; O70.0 First degree perineal laceration during delivery; O13.5 Gestational [pregnancy-induced] hypertension without significant proteinuria, complicating the puerperium
CPT/HCPCS: 36415; 59409; 80053; 80307; 81001; 82570; 83735; 84156; 84550; 85025; 85610; 85730; 86780; 86850; 86900; 86901; 94762; 96360; 96361; 96365; 96366; 96374; 96375; G0378; J2590